=== PATIENT | male | born 1960 | race Caucasian/White ===

== ENCOUNTER 2021-04-15 19:20 | Emergency (ER) | payer MEDICAID ==
[~2021-04-15] VITALS: Ht 177.8 cm; Wt 74.8 kg
[2021-04-15 19:27] VITALS: BP 162/86
--- NOTE | 2021-04-15 19:27 | NUR ---
SOB X 25 MINUTES.. PT TOOK MEDICATION BUT IS NOT FEELING BETTER. " I TOOK PYRIDOSTIGMINE AND XANAX" PMH : HTN
--- NOTE | 2021-04-15 19:36 | NUR ---
TO LOBBY FOLLOWING TRIAGE
[2021-04-15] MEDS ORDERED: ONDANSETRON 4 MG ODT PO ONE (20:10)
[2021-04-15] MEDS ORDERED: ALUMINUM HYD/MAG/SIMETHICONE 30 ML, DICYCLOMINE HCL LIQUID 20 MG, LIDOCAINE VISCOUS 2% ... PO ONE ×3 (20:10)
[2021-04-15] MEDS ORDERED: ALUMINUM HYD/MAG/SIMETHICONE 30 ML UDC ONE (20:15)
[2021-04-15] MEDS ORDERED: DICYCLOMINE HCL LIQUID 10 MG/5 ML UDC ONE (20:16)
--- NOTE | 2021-04-15 20:17 | NUR ---
CALLEDTO TRIAGE FOR MEDS, NO ANSWER
[2021-04-15] MEDS ORDERED: ONDA-188 PO (20:43)
== END 2021-04-15 21:11 | disposition home or self-care (01) ==
LOC: MED 19:20
DX: T88.7XXA Unspecified adverse effect of drug or medicament, initial encounter (principal); K21.9 Gastro-esophageal reflux disease without esophagitis; T44.0X5A Adverse effect of anticholinesterase agents, initial encounter; Y92.89 Other specified places as the place of occurrence of the external cause
CPT/HCPCS: 93005; 99283; Q0162